=== PATIENT | female | born 1965 | race Caucasian/White ===

== ENCOUNTER 2017-07-30 12:17 | Day surgery (SDC) | payer BC ==
[2017-07-30] MEDS ORDERED: PROPOFOL 40 ML (15:47)
[2017-07-30] MEDS ORDERED: LIDOCAINE 2% (SDV) 5 ML INJ (15:47)
== END 2017-07-30 18:42 | disposition home or self-care (01) ==
LOC: GIL 12:17
DX: K29.80 Duodenitis without bleeding (principal); K44.9 Diaphragmatic hernia without obstruction or gangrene; Z85.038 Personal history of other malignant neoplasm of large intestine; F41.8 Other specified anxiety disorders
CPT/HCPCS: 43239; 82962; 88305

== ENCOUNTER 2017-11-29 22:22 | Emergency (ER) | payer BC ==
[2017-11-30 02:31] LABS: ADD MAN DIFF? NO
[2017-11-30 02:32] LABS: BASOPHIL # 0.1 10^3/ul (0.0-0.1); BASOPHILS % 0.5 % (0.0-2.0); EOSINOPHILS % 0.4 % (0.0-7.0); HEMOGLOBIN 15.1 g/dl (12.0-16.0); LYMPHOCYTES # 1.9 10^3/ul (0.8-2.9); LYMPHOCYTES % 17.1 % (15.0-51.0); MEAN CORPUSCULAR HEMOGLOBIN 32.4 pg (29.0-33.0); MEAN CORPUSCULAR HGB CONC 35.1 g/dl (32.0-37.0); MEAN CORPUSCULAR VOLUME 92.3 fl (82.0-101.0); MEAN PLATELET VOLUME 10.4 fl (7.4-10.4); MONOCYTE # 0.6 10^3/ul (0.3-0.9); MONOCYTES % 5.5 % (0.0-11.0); NEUTROPHIL # 8.3 10^3/ul (1.6-7.5); PLATELET COUNT 332 10^3/UL (140-415); RED BLOOD COUNT 4.66 10^6/ul (4.20-5.40); RED CELL DISTRIBUTION WIDTH 11.5 % (11.5-14.5)
[2017-11-30 02:32] LABS: WHITE BLOOD COUNT 10.9 10^3/ul (4.8-10.8)
[2017-11-30 02:36] LABS: ADD UMIC NO; UR ASCORBIC ACID NEGATIVE (NEGATIVE); UR BILIRUBIN (Dip) NEGATIVE (NEGATIVE); UR BLOOD (Dip) NEGATIVE (NEGATIVE); UR CLARITY CLEAR (CLEAR); UR COLOR YELLOW (YELLOW); UR GLUCOSE (Dip) NEGATIVE (NEGATIVE); UR KETONES (Dip) 1+ mg/dL (NEGATIVE); UR LEUKOCYTE ESTERASE (Dip) NEGATIVE Leu/ul (NEGATIVE); UR NITRITE (Dip) NEGATIVE (NEGATIVE); UR SPECIFIC GRAVITY (Dip) 1.013 (1.003-1.030); UR TOTAL PROTEIN (Dip) NEGATIVE (NEGATIVE); UR UROBILINOGEN (Dip) NEGATIVE (NEGATIVE)
[2017-11-30] MEDS: ONDANSETRON 4 MG INJ IV (02:40)
[2017-11-30] MEDS: SOD CHLORIDE 0.9% 1,000 ML IV (02:40)
[2017-11-30] MEDS: morphine 4 MG/ML VIAL IV (02:40)
[2017-11-30 02:53] LABS: INR 1.07; PT RATIO 1.1
[2017-11-30 02:54] LABS: PARTIAL THROMBOPLASTIN TIME 26.4 Sec (25.0-35.0)
[2017-11-30 03:14] LABS: ALANINE AMINOTRANSFERASE 57 IU/L (13-69); ALBUMIN 4.6 g/dl (3.3-4.9); ALBUMIN/GLOBULIN RATIO 1.39; ALKALINE PHOSPHATASE 134 IU/L (42-121); ANION GAP 16 (8-16); ASPARTATE AMINO TRANSFERASE 41 IU/L (15-46); BILIRUBIN,INDIRECT 0.5 mg/dl (0-1.1); BILIRUBIN,TOTAL 0.5 mg/dl (0.2-1.3); BLOOD UREA NITROGEN 12 mg/dl (7-20); CALCIUM 9.7 mg/dl (8.4-10.2); CARBON DIOXIDE 27 mmol/L (21-31); CHLORIDE 106 mmol/L (97-110); CREATININE 0.69 mg/dl (0.44-1.00); GLUCOSE 126 mg/dl (70-220); LIPASE 107 U/L (23-300); POTASSIUM 3.7 mmol/L (3.5-5.1); SODIUM 145 mmol/L (135-144); TOTAL PROTEIN 7.9 g/dl (6.1-8.1)
== END 2017-11-30 03:51 | disposition home or self-care (01) ==
LOC: E/R 22:22
DX: K20.9 Esophagitis, unspecified (principal); C7A.019 Malignant carcinoid tumor of the small intestine, unspecified portion; F11.20 Opioid dependence, uncomplicated
CPT/HCPCS: 36415; 80053; 81003; 83690; 85025; 85610; 85730; 87086; 96374; 96375; 99284-25

== ENCOUNTER 2018-11-26 11:48 | Day surgery (SDC) | payer BC ==
[2018-11-26] MEDS ORDERED: FENTAnyl 50 MCG/ML VIAL (14:02)
[2018-11-26] MEDS ORDERED: PROPOFOL 200 MG INJ (14:30)
[2018-11-26] MEDS ORDERED: PROPOFOL 60 ML (14:30)
[2018-11-26] MEDS ORDERED: LIDOCAINE 2% (SDV) 5 ML INJ (14:30)
== END 2018-11-26 17:20 | disposition home or self-care (01) ==
LOC: GIL 11:48
DX: K29.70 Gastritis, unspecified, without bleeding (principal); Z85.060 Personal history of malignant carcinoid tumor of small intestine
CPT/HCPCS: 43239; 88305; 88312